=== PATIENT | male | born 1950 | race Two or more races ===

== ENCOUNTER 2022-05-18 06:38 | Inpatient (IN) | payer OTHER, MEDICAID ==
[~2022-05-18] VITALS: Ht 162.6 cm; Wt 89.2 kg
[2022-05-18] VITALS (13 sets, daily range): BP systolic 117–177; BP diastolic 51–96
[~2022-05-18 06:38] MED LIST: ATOR20TA50 PO; CARV6.25 PO; CLOP75TA70 PO
[2022-05-18] MEDS ORDERED: IODIXANOL 320MG/ML 100ML BTL IV ONE (09:02)
[2022-05-18] MEDS ORDERED: LIDOCAINE 2%HCL (LOCAL ANESTH.) INJ 10ml MDV ONE ×2 (09:02→09:06)
[2022-05-18] MEDS ORDERED: VERAPAMIL 2.5MG/ML INJ 2ML VIAL IV ONE (09:05)
[2022-05-18] MEDS ORDERED: HEPARIN SODIUM (PORCINE) 5000 UNITS/ML 1ML VIAL ONE (09:05)
[2022-05-18] MEDS ORDERED: ANGIOMAX 250 MG VIAL IV ONE (09:05)
[2022-05-18] MEDS ORDERED: MIDAZOLAM HCL 2MG/2ML 2ml VIAL (1mg/ml) ONE ×2 (09:06→09:23)
[2022-05-18] MEDS ORDERED: SODIUM CHL 0.9% 50 ML ONE ×2 (09:06→09:10)
[2022-05-18] MEDS ORDERED: fentaNYL CITRATE 100 MCG/2 ML VL ONE (09:06)
[2022-05-18] MEDS ORDERED: NITROGLYCERIN 5MG/ML 10ML VIAL IV ONE (09:10)
[2022-05-18] MEDS ORDERED: EPINEPHrine HCL 1 MG/10 ML SYRG ONE (09:42)
[2022-05-18] MEDS ORDERED: ATROPINE SULF 1 MG/10ml SYR ONE (09:42)
[2022-05-18] MEDS ORDERED: CLOPIDOGREL 300 MG TAB ONE (10:05)
[2022-05-18] MEDS ORDERED: ASPirin 325 MG TAB ONE (10:06)
[2022-05-18] MEDS ORDERED: MORPHINE SULFATE INJ 2 MG/ml SYRG IV PRN (10:15)
[2022-05-18] MEDS ORDERED: NITROGLYCERIN 0.4 MG SL TAB SL PRN (10:15)
[2022-05-18] MEDS: ACETAMINOPHEN 500 MG TAB PO PRN (15:39)
[2022-05-18] MEDS: SODIUM CHLOR 0.9% PF (SALINE LOCK) 10ML VIAL/SYR IV SCH (21:39)
[2022-05-19 05:00] VITALS: BP 114/60
[2022-05-19] MEDS: SODIUM CHLOR 0.9% PF (SALINE LOCK) 10ML VIAL/SYR IV SCH (06:06)
[2022-05-19] MEDS: ACETAMINOPHEN 500 MG TAB PO PRN ×2 (06:06→09:52)
[2022-05-19 09:00] VITALS: BP 111/76
[2022-05-19] MEDS ORDERED: CLOPIDOGREL BISULFATE 75 MG TAB PO SCH (10:00)
[2022-05-19] MEDS ORDERED: ASPirin 81 mg TAB PO SCH (10:00)
[2022-05-19] MEDS ORDERED: HYDROcodone-ACET 5/325MG TAB PO PRN (10:00)
== END 2022-05-19 11:33 | disposition home or self-care (01) | DRG 247 ==
LOC: CATH 06:38 → TELE-WESTW 16:14
PROVIDERS: ADMIT Internal Medicine; ATTEND Internal Medicine
PROC: B2111ZZ Fluoroscopy of Multiple Coronary Arteries using Low Osmolar Contrast (ICD-10-PCS; principal; 2022-05-18)
PROC: 027034Z Dilation of Coronary Artery, One Artery with Drug-eluting Intraluminal Device, Percutaneous Approach (ICD-10-PCS; 2022-05-18)
PROC: 4A023N7 Measurement of Cardiac Sampling and Pressure, Left Heart, Percutaneous Approach (ICD-10-PCS; 2022-05-18)
DX: I25.119 Atherosclerotic heart disease of native coronary artery with unspecified angina pectoris (principal); I10 Essential (primary) hypertension; Z20.822 Contact with and (suspected) exposure to COVID-19
CPT/HCPCS: 92928; 93458; 99152; 99153; C1874; G0378; J2001; J2250; J3490; Q9967

== ENCOUNTER 2023-03-03 01:42 | Inpatient (IN) | payer OTHER, MEDICAID ==
[~2023-03-03] VITALS: Ht 154.9 cm; Wt 84.0 kg
[2023-03-03] VITALS (18 sets, daily range): BP systolic 92–110; BP diastolic 54–61; PULSE 48–98; RESP 16–20; TEMP 97.9–98.8; O2SAT 90–100
[2023-03-03] MEDS ORDERED: NITROGLYCERIN 0.4 MG SL TAB SL PRN (03:00)
[2023-03-03] MEDS ORDERED: MORPHINE SULFATE INJ 2 MG/ml SYRG IV PRN (03:00)
[2023-03-03] MEDS ORDERED: ACETAMINOPHEN 325 MG TAB PO PRN (03:00)
[2023-03-03] MEDS ORDERED: DEXTROSE (50%) 50ML SYRG IV PRN (03:00)
[2023-03-03] MEDS: InsuLIN REG 1unit/0.01ml Soln (100units/ml) SC SCH ×4 (06:01→22:06)
[2023-03-03] MEDS: ACCU-CHEK COMFORT CURVE STRIP VI SCH ×4 (06:02→22:06)
[2023-03-03 06:16] LABS: Basophils # (auto) 0 10 ^3/uL (0-0.2); Basophils % (auto) 0.2 % (0.0-2.0); Chloride 104 mmol/L (98-107); Eosinophils # (auto) 0 10 ^3/uL (0-0.8); Hemoglobin 13.5 g/dL (13.5-17.5); Lymphocytes # (auto) 0.6 10 ^3/uL (0.4-5.4); Lymphocytes % (auto) 12.7 % (10.0-50.0); Mean Corpuscular Hemoglobin 32.5 pg (28.0-32.0); Mean Corpuscular Hgb Conc. 34.5 g/dL (32.0-36.0); Mean Corpuscular Volume 94.1 fL (80.0-100.0); Monocytes # (auto) 0.1 10 ^3/uL (0-1.3); Monocytes % (auto) 1.4 % (0.0-12.0); Neutrophils # (auto) 4.2 10 ^3/uL (1.6-8.6); Neutrophils % (auto) 85.7 % (37.0-80.0); Nucleated Red Blood Cells % 0.1 %; Potassium 3.6 mmol/L (3.5-5.1); Red Blood Cells 4.15 10^6/uL (4.5-5.90); Red Cell Distribution Width 13.4 % (11.8-14.3); Sodium 135 mmol/L (136-145); White Blood Cell 4.9 10^3/uL (4.4-10.8)
[2023-03-03 06:17] LABS: Anion Gap 5 (5-15); Calcium 8.7 mg/dL (8.7-10.4); Carbon Dioxide 26 mmol/L (20-30)
[2023-03-03 06:22] LABS: BUN/Creatinine Ratio 12.7 (10.0-20.0); Blood Urea Nitrogen 9 mg/dL (9-23); Glucose 160 mg/dL (74-106)
[2023-03-03] MEDS: ALBUTEROL SULF 2.5 MG/0.5ML(0.5%) NEB SOLN NEB SCH ×5 (07:07→22:17)
[2023-03-03] MEDS: IPRATROPIUM BROM 0.5 MG/2.5ML INH SOL NEB SCH ×5 (07:07→22:17)
[2023-03-03] MEDS ORDERED: IOHEXOL 350 MG/ML 100ML IJ ONE (07:20)
[2023-03-03] MEDS: PANTOPRAZOLE 40 MG/10 ML VIAL INJ IV SCH (09:47)
[2023-03-03] MEDS: HEPARIN SODIUM (PORCINE) 5000 UNITS/ML 1ML VIAL SC SCH ×2 (09:55→22:06)
[2023-03-03] MEDS ORDERED: methylPREDNISolone SOD SUCC 40 MG/ML VL IV SCH (10:00)
[2023-03-03] MEDS: methylPREDNISolone SOD SUCC 40 MG/ML VL IV SCH ×2 (15:45→22:05)
[2023-03-03] MEDS: HYDROcodone-ACET 5/325MG TAB PO PRN ×2 (16:41→20:38)
[2023-03-03] MEDS: CARVEDILOL 3.125 MG TAB PO SCH (22:10)
[2023-03-04] VITALS (13 sets, daily range): BP systolic 100–133; BP diastolic 54–82; PULSE 57–87; RESP 16–20; TEMP 98.2–98.3; O2SAT 92–99
[2023-03-04] MEDS: ALBUTEROL SULF 2.5 MG/0.5ML(0.5%) NEB SOLN NEB SCH ×5 (01:45→18:00)
[2023-03-04] MEDS: IPRATROPIUM BROM 0.5 MG/2.5ML INH SOL NEB SCH ×5 (01:45→18:00)
[2023-03-04] MEDS: HYDROcodone-ACET 5/325MG TAB PO PRN ×2 (02:40→07:03)
[2023-03-04] MEDS: ACCU-CHEK COMFORT CURVE STRIP VI SCH ×3 (06:29→17:00)
[2023-03-04] MEDS: methylPREDNISolone SOD SUCC 40 MG/ML VL IV SCH ×2 (06:29→15:17)
[2023-03-04] MEDS: InsuLIN REG 1unit/0.01ml Soln (100units/ml) SC SCH ×3 (06:33→17:00)
[2023-03-04] MEDS: PANTOPRAZOLE 40 MG/10 ML VIAL INJ IV SCH (09:05)
[2023-03-04] MEDS: HEPARIN SODIUM (PORCINE) 5000 UNITS/ML 1ML VIAL SC SCH (09:06)
[2023-03-04] MEDS: CARVEDILOL 3.125 MG TAB PO SCH (09:08)
[2023-03-04] MEDS ORDERED: ATORVASTATIN 20 MG TAB PO SCH (10:00)
[2023-03-04] MEDS ORDERED: CLOPIDOGREL BISULFATE 75 MG TAB PO SCH (10:00)
[2023-03-04] MEDS ORDERED: METH4PAK PO (16:22)
[2023-03-04] MEDS ORDERED: ALB5IS NEB (16:22)
[2023-03-04] MEDS ORDERED: IPR002IS NEB (16:22)
[2023-03-04] MEDS ORDERED: NEBU1MIS48 XX (16:23)
[2023-03-04] MEDS ORDERED: DOXY-286 PO (16:26)
== END 2023-03-04 19:56 | disposition home health service (06) | DRG 189 ==
LOC: TELE-WESTW 02:31
PROVIDERS: ADMIT Internal Medicine; ATTEND Internal Medicine
DX: J96.21 Acute and chronic respiratory failure with hypoxia (principal); J44.1 Chronic obstructive pulmonary disease with (acute) exacerbation; J45.901 Unspecified asthma with (acute) exacerbation; I10 Essential (primary) hypertension; E11.9 Type 2 diabetes mellitus without complications; R47.1 Dysarthria and anarthria; G47.30 Sleep apnea, unspecified; E66.01 Morbid (severe) obesity due to excess calories; Z83.3 Family history of diabetes mellitus; Z86.73 Personal history of transient ischemic attack (TIA), and cerebral infarction without residual deficits; Z87.891 Personal history of nicotine dependence; Z79.899 Other long term (current) drug therapy
CPT/HCPCS: 36415; 71275; 80048; 82962; 85025; 93970; 94640; 97163; C9113; G0378; J1815